=== PATIENT | female | born 1975 | race Caucasian/White ===

== ENCOUNTER → 2021-04-01 09:21 | Outpatient (CLI) | payer BC, SELFPAY ==
--- NOTE | ~2021-04-01 | US_ITS ---
EXAMINATION: US pelvic complete EXAM DATE: 04/01/2021 09:42 INDICATION: Pelvic pain TECHNIQUE: Pelvic transabdominal sonogram was performed. There are multiple grayscale and Doppler im ages available for interpretation. Comparison is made to prior examination from 01/27/2017. FINDINGS: Uterus measures 9.7 x 3.7 x 4.9 cm, with several fibroids, largest in the right anterior a spect measuring 2.3 cm (this fibroid measured 1.3 cm in 2017). Endometrial stripe measures 6 mm, with in normal limits. There is no free pelvic fluid. Right adnexa: The ovary measures 4.4 x 2.3 x 3.0 cm and is morphologically normal. Ovarian vascular f low confirmed. Left adnexa: The ovary measures 3.1 x 2.1 x 2.1 cm and is morphologically normal. Ovarian vascular fl ow confirmed. IMPRESSION: Small fibroids. Reviewed, dictated and finalized at location A. 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
== END ==
PROVIDERS: PCP Internal Medicine; Visit Provider Nurse Practitioner
DX: D25.9 Leiomyoma of uterus, unspecified (principal)
CPT/HCPCS: 76856

== ENCOUNTER → 2021-07-02 11:30 | Outpatient (CLI) | payer BC, SELFPAY ==
--- NOTE | ~2021-07-02 | MM_ITS ---
EXAMINATION: MM screening [facility] BI w naima HISTORY: Screening mammogram TECHNIQUE: Craniocaudal and mediolateral oblique 3-D tomosynthesis images were obtained and synthetic 2-D images were generated. CAD analysis was submitted and interpreted. COMPARISON: 01/26/2018, 01/27/2017, 08/08/2015 BREAST PARENCHYMAL COMPOSITION: The breasts are extremely dense, which lowers the sensitivity of mamm ography. FINDINGS: There is no suspicious mass, calcification, or architectural distortion to suggest malignan cy in either breast. There has been no suspicious interval change. IMPRESSION: 1. No mammographic evidence of malignancy. 2. Recommend routine screening mammography in one year. BI-RADS Category 1: Negative Reviewed, dictated and finalized at location A.
== END ==
PROVIDERS: PCP Internal Medicine; Visit Provider Nurse Practitioner
DX: Z12.31 Encounter for screening mammogram for malignant neoplasm of breast (principal)
CPT/HCPCS: 77063; 77067

== ENCOUNTER → 2022-12-09 11:01 | Outpatient (CLI) | payer BC, SELFPAY ==
--- NOTE | ~2022-12-09 | MM_ITS ---
EXAMINATION: MM screening [facility] w naima HISTORY: Screening mammogram TECHNIQUE: Craniocaudal and mediolateral oblique 3-D tomosynthesis images were obtained and synthetic 2-D images were generated. CAD analysis was submitted and interpreted. COMPARISON: 07/02/2021, 01/26/2018 lateral screening mammogram examinations BREAST PARENCHYMAL COMPOSITION: The breasts are extremely dense, which lowers the sensitivity of mamm ography. FINDINGS: There is no evidence of suspicious mass, calcification, or architectural distortion to sugg est malignancy in either breast. There has been no suspicious interval change. IMPRESSION: 1. No mammographic evidence of malignancy. 2. Recommend routine screening mammography in one year. BI-RADS Category 1: Negative Reviewed, dictated and finalized at location A.
== END ==
PROVIDERS: PCP Nurse Practitioner; Visit Provider Nurse Practitioner
DX: Z12.31 Encounter for screening mammogram for malignant neoplasm of breast (principal)
CPT/HCPCS: 77063; 77067

== ENCOUNTER 2023-12-12 10:11 | Outpatient (CLI) | payer BC, SELFPAY ==
--- NOTE | ~2023-12-12 | MM_ITS ---
EXAMINATION: MM screening [facility] BI w naima HISTORY: Screening mammogram, family history of breast cancer in her sister. TECHNIQUE: Craniocaudal and mediolateral oblique 3-D tomosynthesis images were obtained and synthetic 2-D images were generated. CAD analysis was submitted and interpreted. COMPARISON: 12/09/2022, 07/02/2021, 01/26/2018 BREAST PARENCHYMAL COMPOSITION:Dense: The breasts are extremely dense, which lowers the sensitivity o f mammography. FINDINGS: No suspicious mass, calcification, or architectural distortion are identified in either anil ast to suggest malignancy. There has been no suspicious interval change. IMPRESSION: No mammographic evidence of malignancy. Recommend routine screening mammography in one year. BI-RADS Category 1: Negative Reviewed, dictated and finalized at location .
== END 2023-12-12 10:12 | disposition home or self-care (01) ==
LOC: MICIMG 10:15
PROVIDERS: PCP Obstetrics & Gynecology; Visit Provider Obstetrics & Gynecology
DX: Z12.31 Encounter for screening mammogram for malignant neoplasm of breast (principal)
CPT/HCPCS: 77063; 77067

== ENCOUNTER 2024-09-14 00:50 | Day surgery (SDC) | payer BC, SELFPAY ==
[2024-09-05 10:33] VITALS: BMI 21.9
[2024-09-14 06:44] VITALS: BP 96/69; PULSE 90; RESP 18; TEMP 36.9; O2SAT 100
[2024-09-14] MEDS: LACTATED RINGERS 1,000 ML 150 ML IV CONT (06:52)
--- NOTE | 2024-09-14 07:10 | WPDANESEPPF ---
Anes - Initial Pre Proc Eval Procedure: Operation Date: 09/14/24 08:00 Proposed Procedures p Screening Colonoscopy - Jorge Alberto Parish MD Date/Time: 09/14/24 07:10 Surgeon: Jorge Alberto Parish MD Pre Op Diagnosis: Screening Patient Data Age: 49 Gender: F Height: 1.55 m Weight: 51.2 kg Last Vital Signs Temp 36.9 C 09/14/24 06:44 Pulse 90 09/14/24 06:44 Resp 18 09/14/24 06:44 BP 96/69 L 09/14/24 06:44 Pulse Ox 100 09/14/24 06:44 O2 Del Method Room Air 09/14/24 06:44 Allergies Allergy/AdvReac Type Severity Reaction Status Date / Time tetracycline Allergy Unknown Unknown Verified 09/14/24 06:40 Home Medications ?Medication ?Instructions ?Recorded ?Confirmed ?Type creatine monohydrate 1 ea PO DAILY 09/05/24 09/14/24 History medroxyprogesterone 5 mg tablet 5 mg PO DAILY 09/05/24 09/14/24 History spironolactone 50 mg tablet 50 mg PO HS 09/05/24 09/14/24 History Patient hx anesthesia problems: none Family hx anesthesia problems: none Results Review: All pre-operative results and documents have been reviewed as part of the pre-operative evaluation. [facility] Past Medical History Medical History Thyroid nodule Needs flu shot Establishing care with new doctor, encounter for Encounter for annual physical exam Surgical History Surgical History History of tubal ligation History of carpal tunnel release Social History Social History Smoking status: Never smoker Second hand tobacco smoke exposure: No Alcohol intake: never Alcohol use details: every once in a while Substance use: never Substance use type: does not use Lack of Transportation: No Lack of Food: Never True Current Housing: I Have Housing Concerned About Future Housing: No Difficulty Paying Gas/Electric Bills: No Difficulty Paying for Meds: No Currently Unemployed: No Education: Trade/Vocational Certificate Difficulty w/ Childcare or Family Care: No Living arrangements: with family Spiritual care concerns: No Anes - Eval Final PreProcedure Day of Procedure 09/14/24 07:10 Patient weight: normal Heart: regular rate and rhythm Lungs: clear to auscultation Airway: Mallampati scale class 1 Neurological: alert and oriented Last oral intake: >/= 8 hours ASA classification: I Emergent: no Anesthetic plan: proceed Anesthesia type and monitoring: general GIVS and standard monitoring Results Review: All pre-operative results and documents have been reviewed as part of the pre-operative evaluation. Informed Consent: The patient's anesthetic plan and its attendant risks and benefits were discussed with the patient/family/POA. Questions were solicited and answers provided to the satisfaction of the patient/family/POA.
--- NOTE | 2024-09-14 07:58 | PM.IMHP ---
H&P: HPI History of Present Illness Date/Time: 09/14/24 07:58 Chief Complaint: Screening colonoscopy Narrative: This is the patient's first colonoscopy. There are no GI symptoms and there is no family history of colorectal cancer. Review of Systems Review of Systems: All systems reviewed & are unremarkable except as noted in HPI and below PMFSH Past Medical History Medical History Thyroid nodule Needs flu shot Establishing care with new doctor, encounter for Encounter for annual physical exam Surgical History Surgical History History of tubal ligation History of carpal tunnel release Social History Social History Smoking status: Never smoker Second hand tobacco smoke exposure: No Alcohol intake: never Alcohol use details: every once in a while Substance use: never Substance use type: does not use Lack of Transportation: No Lack of Food: Never True Current Housing: I Have Housing Concerned About Future Housing: No Difficulty Paying Gas/Electric Bills: No Difficulty Paying for Meds: No Currently Unemployed: No Education: Trade/Vocational Certificate Difficulty w/ Childcare or Family Care: No Living arrangements: with family Spiritual care concerns: No Meds Home Medications and Allergies Home Medications ?Medication ?Instructions ?Recorded ?Confirmed ?Type creatine monohydrate 1 ea PO DAILY 09/05/24 09/14/24 History medroxyprogesterone 5 mg tablet 5 mg PO DAILY 09/05/24 09/14/24 History spironolactone 50 mg tablet 50 mg PO HS 09/05/24 09/14/24 History Allergies Allergy/AdvReac Type Severity Reaction Status Date / Time tetracycline Allergy Unknown Unknown Verified 09/14/24 06:40 Vital Signs Vital Signs - 24 hr 09/14/24 06:44 Temperature 98.4 F Pulse Rate 90 Respiratory Rate 18 Blood Pressure 96/69 L Pulse Oximetry 100 Oxygen Delivery Room Air Exam Const: General: cooperative and healthy appearing Resp: Effort & Inspection: normal respiratory effort and able to speak in complete sentences Auscultation: clear to auscultation bilaterally Cardio: Rate: regular rate Rhythm: regular rhythm GI: Inspection: normal to inspection GI Palp: No No hepatosplenomegaly present Auscultation: normal bowel sounds Rectal Exam: deferred Skin: General skin exam: normal color Psych: Appearance: grossly normal Mental Status: mental status grossly normal Assessment and Plan Assessment and plan (1) Screening for colon cancer: Code(s): Z12.11 - Encounter for screening for malignant neoplasm of colon Status: Acute Assessment and Plan: The patient is deemed a good candidate for the procedure. Consent signed. Will proceed.
[2024-09-14 08:27] VITALS: BP 96/65; PULSE 73; RESP 19; O2SAT 100
[2024-09-14 08:37] VITALS: BP 102/67; PULSE 70; RESP 18; O2SAT 100
[2024-09-14 08:47] VITALS: BP 110/71; PULSE 66; RESP 21; O2SAT 99
== END 2024-09-14 08:56 | disposition home or self-care (01) ==
PROVIDERS: PCP Nurse Practitioner Family; Referring Provider Nurse Practitioner Family; Visit Provider Internal Medicine Gastroenterology
PROC: 0DJD8ZZ Inspection of Lower Intestinal Tract, Via Natural or Artificial Opening Endoscopic (ICD-10-PCS; CPT 45378; principal; 2024-09-14 08:00)
DX: Z12.11 Encounter for screening for malignant neoplasm of colon (principal); K64.8 Other hemorrhoids
CPT/HCPCS: 45378; J2003; J2704; J7120

== ENCOUNTER 2024-12-13 11:34 | Outpatient (CLI) | payer BC, SELFPAY ==
--- NOTE | ~2024-12-13 | MM_ITS ---
EXAMINATION: MM screening [facility] w naima HISTORY: Screening TECHNIQUE: Craniocaudal and mediolateral oblique 3-D tomosynthesis images were obtained and synthetic 2-D images were generated. CAD analysis was submitted and interpreted. COMPARISON: Comparison to multiple prior studies sequentially, with oldest reviewed study dated , 08/08/2015 BREAST PARENCHYMAL COMPOSITION: The breasts are extremely dense, which lowers the sensitivity of mammography. FINDINGS: There is no evidence of suspicious mass, calcification, or architectural distortion to suggest malignancy in either breast. IMPRESSION: 1. No mammographic evidence of malignancy. 2. Recommend routine screening mammography in one year. BI-RADS Category 1: Negative Reviewed, dictated and finalized at location B.
== END 2024-12-13 11:35 | disposition home or self-care (01) ==
LOC: MICIMG 11:34
PROVIDERS: PCP Nurse Practitioner Family; Visit Provider Obstetrics & Gynecology
DX: Z12.31 Encounter for screening mammogram for malignant neoplasm of breast (principal)
CPT/HCPCS: 77063; 77067